=== PATIENT | male | born 1955 | race Two or more races ===

== ENCOUNTER → 2018-01-22 | Outpatient (CLI) | payer OTHER ==
--- NOTE | 2018-01-22 10:09 | CT ---
EXAMINATION TYPE: CT chest wo con DATE OF EXAM: 01/22/2018 COMPARISON: HISTORY: Patient complains of difficulty breathing. High resolution protocol. CT DLP: 965.8 mGycm High-resolution noncontrast CT of the chest was performed with the patient in the prone and supine po sitions. Lung and mediastinal window settings are submitted. The lungs appear to be well-aerated. I do not see evidence for fibrotic change. There is no eviden ce for bronchiectasis, groundglass infiltrate, nodule or mass. No pleural effusion is identified. I do not see evidence for hilar or mediastinal mass or adenopathy. IMPRESSION: No significant abnormality is seen. Correlate clinically.
== END | disposition home or self-care (01) ==
LOC: RADCTMAIN 09:28
PROVIDERS: ATTEND Internal Medicine Critical Care Medicine
DX: R06.09 Other forms of dyspnea (principal)
CPT/HCPCS: 71250

== ENCOUNTER 2019-06-30 17:54 | Emergency (ER) | payer OTHER ==
[2019-06-30 18:02] VITALS: TEMP 97.5
[2019-06-30] MEDS ORDERED: ACETAMINOPHEN TAB 325 MG TAB PO STA (18:38)
--- NOTE | 2019-06-30 18:57 | XR ---
EXAMINATION TYPE: XR Hip Complete LT DATE OF EXAM: 06/30/2019 COMPARISON: NONE HISTORY: Left hip pain after falling TECHNIQUE: 2 views FINDINGS: The acetabulum is intact. Proximal left femur and hip joint are intact. Hip joint space is fairly normal. Sacroiliac joint is intact. IMPRESSION: No acute abnormality of the left hip.
[2019-06-30 19:08] VITALS: BP 129/73; PULSE 85; RESP 18
--- NOTE | 2019-06-30 19:16 | ED ---
General Adult HPI - General Chief complaint: Fall Stated complaint: [facility]-Fall Time Seen by Provider: 06/30/19 18:04 Source: patient, RN notes reviewed, old records reviewed Mode of arrival: ambulatory Limitations: no limitations - History of Present Illness Initial comments: 63-year-old male patient with past history of hypertension, hyperlipidemia presents to ED for chief complaint of fall at work. Patient reports that his legs became tingly he stumbled forward. Denies hitting his head or his neck. Patient's chief complaint of left groin pain. Physical pulled his groin. She does report that he has inguinal hernia in this region as well to using operated on next month. Patient denies any current pain in scrotum or any scrotal mass. Ambulatory without difficultly. Denies any other comlpains at this time. Systemic: Pt denies fatigue, fever/chills, rash. Pt denies weakness, night sweats, weight loss. Neuro: Pt denies headache, visual disturbances, syncope or pre-syncope. HEENT: Pt denies ocular discharge or irritation, otalgia, rhinorrhea, pharyngitis or notable lymphadenopathy. Cardiopulmonary: Pt denies chest pain, SOB, heart palpitations, dyspnea on exertion. Abdominal/GI: Pt denies abdominal pain, n/v/d. : Pt denies dysuria, burning w/ urination, frequency/urgency. Denies new onset urinary or bowel incontinence. MSK: Pt denies myalgia, loss of strength or function in extremities. Neuro: Pt denies new onset weakness, paresthesias. - Related Data Allergies Allergy/AdvReac Type Severity Reaction Status Date / Time No Known Allergies Allergy Verified 06/30/19 18:02 Review of Systems ROS Statement: Those systems with pertinent positive or pertinent negative responses have been documented in the HPI. ROS Other: All systems not noted in ROS Statement are negative. Past Medical History Past Medical History: Diabetes Mellitus, Hyperlipidemia, Hypertension Additional Past Surgical History / Comment(s): Neck, Cardiac Stent. Past Psychological History: No Psychological Hx Reported Smoking Status: Never smoker Past Alcohol Use History: Occasional Past Drug Use History: None Reported General Exam - General Exam Comments Initial Comments: Constitutional: NAD, AOX3, Pt has pleasant affect. HEENT: NC/AT, trachea midline, neck supple, no lymphadenopathy. Posterior pharynx non erythematous, without exudates. External ears appear normal, without discharge. Mucous membranes moist. Eyes PERRLA, EOM intact. There is no scleral icterus. No pallor noted. Cardiopulmonary: RRR, no murmurs, rubs or gallops, no JVD noted. Lungs CTAB in anterior and posterior self. No peripheral edema. Abdominal exam: Abdomen soft and non-distended. Abdomen non-tender to palpation in all 4 quadrants. Bowel sounds active in LLQ. No hepatosplenomegaly. No ec chymosis Neuro: CN II-XII grossly intact. No nuchal rigidity. No raccon eyes, no luque sign, no hemotympanum. No cervical spinal tenderness. MSK: Inguinal region examined, no hernia noted. No posterior calf tenderness bilaterally, homans sign negative bilaterally. Posterior tibialis and radial pulse +2 bilaterally. Sensation intact in upper and lower extremities. Full active ROM in upper and lower extremities, 5/5 stregnth. Limitations: no limitations Course Vital Signs 06/30/19 06/30/19 17:59 19:06 Temperature 97.5 F L Pulse Rate 79 85 Respiratory 20 18 Rate Blood Pressure 177/98 129/73 O2 Sat by Pulse 98 97 Oximetry Medical Decision Making - Medical Decision Making 63-year-old male patient with past history of hypertension, hyperlipidemia presents to ED for chief complaint of fall at work. Patient reports that his legs became tingly he stumbled forward. Denies hitting his head or his neck. Patient's chief complaint of left groin pain. Physical pulled his groin. She does report that he has inguinal hernia in this region as well to using operated on next month. Patient denies any current pain in scrotum or any scrotal mass. Ambulatory without difficultly. Denies any other comlpains at this time. Pt VSS, afebrile. Physical exam displayed: Inguinal region examined, no hernia noted. No posterior calf tenderness bilaterally, homans sign negative bilaterally. Posterior tibialis and radial pulse +2 bilaterally. Sensation intact in upper and lower extremities. Full active ROM in upper and lower extremities, 5/5 stregnth. Ambulatory without diffuclty. Plain film left hip was negative. Patient discharged to follow up with primary care provider or return to ER if condition worsens. Patient with a musculoskeletal groin strain. Case discussed with Dr. Parekh. Disposition Clinical Impression: Myalgia, Musculoskeletal strain Disposition: HOME SELF-CARE Condition: Stable Instructions (If sedation given, give patient instructions): Musculoskeletal Pain (ED) Additional Instructions: follow-up with primary care provider tomorrow. Use Tylenol and Motrin as needed for pain. Return to ER if condition worsens in any way. Is patient prescribed a controlled substance at d/c from ED?: No Referrals: Bhanu Art DO [Primary Care Provider] - 1-2 days
== END 2019-06-30 19:31 | disposition home or self-care (01) ==
LOC: EC 17:54
DX: T14.8XXA Other injury of unspecified body region, initial encounter (principal); M79.10 Myalgia, unspecified site; Z95.5 Presence of coronary angioplasty implant and graft; W19.XXXA Unspecified fall, initial encounter; Y92.69 Other specified industrial and construction area as the place of occurrence of the external cause; Y99.0 Civilian activity done for income or pay
CPT/HCPCS: 73502; 99284